=== PATIENT | female | born 1995 | race Two or more races ===

== ENCOUNTER 2023-02-07 13:03 | Inpatient (IN) | payer OTHER ==
[~2023-02-07] VITALS: Ht 149.9 cm; Wt 74.4 kg
[2023-02-07] MEDS ORDERED: PRENATAL TABLE1 EAC1 PO (13:51)
[2023-02-07] MEDS ORDERED: FOLIC ACID0.8 M1 PO (13:51)
[2023-02-07] MEDS ORDERED: FAMOTIDINE20 MG (15:07)
[2023-02-07] MEDS ORDERED: CONCEPT DHA CA1 EACH (15:07)
== END 2023-02-09 10:04 | disposition home or self-care (01) | DRG 833 ==
LOC: OB/GYN 13:03 → LDR 13:03 → OB/GYN 02-08 08:20
PROVIDERS: ADMIT Obstetrics & Gynecology; ATTEND Obstetrics & Gynecology
PROC: 4A1HXCZ Monitoring of Products of Conception, Cardiac Rate, External Approach (ICD-10-PCS; principal; 2023-02-07)
DX: O47.03 False labor before 37 completed weeks of gestation, third trimester (principal); Z3A.31 31 weeks gestation of pregnancy; Z20.822 Contact with and (suspected) exposure to COVID-19

== ENCOUNTER 2023-02-28 12:11 | Outpatient (CLI) | payer OTHER ==
[~2023-02-28 12:11] MED LIST: CONCEPT DHA CA1 EACH; FAMOTIDINE20 MG; FOLIC ACID0.8 M1 PO; PRENATAL TABLE1 EAC1 PO
== END 2023-02-28 12:28 | disposition home or self-care (01) ==
LOC: NST 12:11
PROVIDERS: ATTEND Obstetrics & Gynecology Maternal & Fetal Medicine
DX: Z34.83 Encounter for supervision of other normal pregnancy, third trimester (principal)

== ENCOUNTER 2023-03-07 15:35 | Outpatient (CLI) | payer OTHER | END 2023-03-07 17:19 | disposition home or self-care (01) | LOC: NST 15:35 | PROVIDERS: ATTEND Obstetrics & Gynecology Gynecology | DX: Z34.83 Encounter for supervision of other normal pregnancy, third trimester (principal) ==

== ENCOUNTER 2023-03-14 13:43 | Inpatient (IN) | payer OTHER ==
[~2023-03-14] VITALS: Ht 149.9 cm; Wt 1.8 kg
[2023-03-21] MEDS ORDERED: VALTREX1000 MG PO (13:47)
[2023-03-22] MEDS ORDERED: CONCEPT DHA CA1 EACH (16:20)
[2023-03-22] MEDS ORDERED: NIFEDIPINE ER30 M1 (16:20)
[2023-03-22] MEDS ORDERED: FAMOTIDINE20 MG (16:21)
== END 2023-03-24 10:01 | disposition home or self-care (01) | DRG 788 ==
LOC: OB/GYN 03-21 12:21 → LDR 03-21 12:21 → O/R 03-21 14:38 → OB/GYN 03-21 15:45
PROVIDERS: ADMIT Obstetrics & Gynecology Maternal & Fetal Medicine; ATTEND Obstetrics & Gynecology Maternal & Fetal Medicine
PROC: 4A1HXCZ Monitoring of Products of Conception, Cardiac Rate, External Approach (ICD-10-PCS; 2023-03-21)
PROC: 10D00Z1 Extraction of Products of Conception, Low, Open Approach (ICD-10-PCS; principal; 2023-03-21 14:00)
DX: O41.03X0 Oligohydramnios, third trimester, not applicable or unspecified (principal); O99.824 Streptococcus B carrier state complicating childbirth; Z3A.37 37 weeks gestation of pregnancy; Z37.0 Single live birth; Z20.822 Contact with and (suspected) exposure to COVID-19

== ENCOUNTER → 2023-03-14 | Outpatient (CLI) | payer OTHER | END | disposition home or self-care (01) | LOC: NST 10:56 | PROVIDERS: ATTEND Obstetrics & Gynecology Maternal & Fetal Medicine | DX: Z34.83 Encounter for supervision of other normal pregnancy, third trimester (principal) ==